=== PATIENT | female | born 1965 | race Caucasian/White ===

== ENCOUNTER 2024-04-05 10:55 | Outpatient (CLI) | payer BC, MEDICAID, SELFPAY ==
--- NOTE | 2024-04-05 11:00 | MM_ITS ---
WS: [id number] BILATERAL SCREENING DIGITAL TOMOSYNTHESIS MAMMOGRAM WITH CAD HISTORY: SCREENING COMPARISON: None available. Bilateral CC and MLO views with tomosynthesis and synthetic mammography submitted. Computer aided det ection analyzed. Breast composition: There are scattered areas of fibroglandular density. No suspicious masses, microc alcifications or architectural distortion. Benign calcifications in each breast. MM/[place] [id number] IMPRESSION: BI-RADS: 2-Benign FOLLOW UP: 1 Year Follow-up
== END 2024-04-05 10:56 | disposition home or self-care (01) ==
LOC: MOBLMAM 11:03
PROVIDERS: PCP Nurse Practitioner Family; Visit Provider Nurse Practitioner Family
DX: Z12.31 Encounter for screening mammogram for malignant neoplasm of breast (principal)
CPT/HCPCS: 77063; 77067

== ENCOUNTER 2025-04-11 10:21 | Outpatient (CLI) | payer MEDICAID, SELFPAY ==
--- NOTE | 2025-04-11 10:20 | MM_ITS ---
WS: [id number] BILATERAL 3D TOMOSYNTHESIS DIGITAL SCREENING MAMMOGRAPHY WITH CAD CLINICAL INFORMATION: SCREENING HISTORY: Screening mammogram. No current complaints. COMPARISON: 2023 TECHNIQUE: Bilateral CC and MLO views. FINDINGS: Scattered fibroglandular densities bilaterally. No suspicious focal mass, asymmetry, calcifications, or architectural distortion. No evidence of malignancy. A few incidental punctate calcifications. MM/MM scr tomosynthesis [id number] IMPRESSION: DENSITY: There are scattered areas of fibroglandular density. BI-RADS: 2 - Benign. FOLLOW UP: 1 Year Follow-up Recommend return to annual screening mammography.
== END 2025-04-11 10:22 | disposition home or self-care (01) ==
LOC: MOBLMAM 10:22
PROVIDERS: PCP Nurse Practitioner Family; Visit Provider Nurse Practitioner Family
DX: Z12.31 Encounter for screening mammogram for malignant neoplasm of breast (principal); R92.323 Mammographic fibroglandular density, bilateral breasts; R92.1 Mammographic calcification found on diagnostic imaging of breast
CPT/HCPCS: 77063; 77067

== ENCOUNTER → 2025-07-25 13:52 | Outpatient (BNVA) | payer MEDICAID, SELFPAY | PROVIDERS: PCP Nurse Practitioner Family; Visit Provider Student in an Organized Health Care Education/Training Program | DX: M25.551 Pain in right hip (principal); M16.11 Unilateral primary osteoarthritis, right hip | CPT/HCPCS: 73502 ==

== ENCOUNTER → 2025-08-17 11:09 | Outpatient (BNVA) | payer MEDICAID, SELFPAY | PROVIDERS: PCP Nurse Practitioner Family; Visit Provider Student in an Organized Health Care Education/Training Program | DX: M16.11 Unilateral primary osteoarthritis, right hip (principal); Z71.89 Other specified counseling | CPT/HCPCS: 77002 ==

== ENCOUNTER 2025-11-21 10:51 | Outpatient (CLI) | payer MEDICAID, SELFPAY ==
--- NOTE | 2025-11-21 14:15 | CT_ITS ---
WS: [id number] CT RIGHT hip for DANIEL procedure HISTORY: RIGHT TOTAL HIP ARTHROPLASTY COMPARISON: 07/25/2025 TECHNIQUE: Protocol for DANIEL total hip replacement has been obtained. This includes axial imaging from the hip joint through the knee joint. DLP: 861.52 mGy FINDINGS: Pelvis: Advanced degenerative changes involving the RIGHT hip. Large subchondral cysts in the femoral head and acetabulum. No fracture. There is very slight lateral subluxation of the hip from the acetabulum. Bilateral tubal ligation clips. RIGHT knee: Normal alignment. No fractures. No soft tissue abnormalities. CT/CT hip RT [facility] [id number] IMPRESSION: CT imaging provided for [facility] robotic total hip replacement.
== END 2025-11-21 10:52 | disposition home or self-care (01) ==
LOC: RAD 10:51
PROVIDERS: PCP Nurse Practitioner Family; Visit Provider Student in an Organized Health Care Education/Training Program
DX: M16.11 Unilateral primary osteoarthritis, right hip (principal); M85.651 Other cyst of bone, right thigh; M24.851 Other specific joint derangements of right hip, not elsewhere classified; Z98.51 Tubal ligation status
CPT/HCPCS: 73700